=== PATIENT | male | born 1945 | race African-American/Black ===

== ENCOUNTER 2024-10-31 22:47 | Inpatient (IN) | payer MEDICARE, MEDICAID ==
[~2024-10-31] VITALS: Ht 175.3 cm; Wt 69.0 kg
[2024-10-31 23:56] LABS: BASOPHILS % 0.8 % (0.0-2.0); EOSINOPHILS % 0.4 % (0.0-5.0); HEMATOCRIT. 28.7 % (42.0-52.0); HEMOGLOBIN. 9.2 g/dL (14.0-18.0); LYMPHOCYTES % 17.8 % (20.0-50.0); MEAN CORPUSCULAR HEMOGLOBIN 30.6 pg (28.0-32.0); MEAN CORPUSCULAR HGB CONC 32.2 g/dL (31.0-37.0); MEAN CORPUSCULAR VOLUME 95.1 fL (80.0-94.0); MEAN PLATELET VOLUME 9.5 fl (7.4-10.4); MONOCYTES % 11.1 % (2.0-8.0); NEUTROPHILS % 69.9 % (40.0-76.0); PLATELET 111 x1000/uL (130-400); RED BLOOD CELL COUNT 3.02 mill/uL (4.7-6.1); RED CELL DISTRIBUTION WIDTH 15.5 % (11.6-14.6); WHITE BLOOD COUNT 7.5 x1000/uL (4.5-11.0)
[2024-11-01] VITALS (8 sets, daily range): BP systolic 113–138; BP diastolic 53–63; PULSE 50–85; RESP 18–22; TEMP 36.7–37.7; O2SAT 92–100
[2024-11-01 00:05] LABS: INR 1.2; PARTIAL THROMBOPLASTIN TIME 32.5 sec (23.4-31.0); PROTHROMBIN TIME 12.7 sec (9.6-11.0)
[2024-11-01 00:07] LABS: CHLORIDE 104 mEq/L (98-107); POTASSIUM 4.6 mEq/L (3.5-5.1); SODIUM 136 mEq/L (136-145)
[2024-11-01 00:08] LABS: CALCIUM 8.1 mg/dL (8.7-10.4); CARBON DIOXIDE 25 mEq/L (21-32)
[2024-11-01 00:13] LABS: CREATININE 1.9 mg/dL (0.6-1.3); GLUCOSE 106 mg/dL (70-105); UREA NITROGEN BLOOD 42 mg/dL (9-23)
[2024-11-01 00:32] LABS: ETHANOL BLOOD < 10 mg/dL (<10); TROPONIN I HIGH SENSITIVITY 112 ng/L (3.0-53)
[2024-11-01] MEDS: ASPIRIN 325MG EC TABLET PO NR (01:11)
[2024-11-01] MEDS ORDERED: IPRATROPIUM/ALBUTEROL 0.5-3(2.5)MG/3ML NEB HHN SCH (02:15)
[2024-11-01] MEDS ORDERED: MAGNESIUM/ALUMINUM HYDROXIDE/SIMETHICONE 30ML UDC PO PRN (02:15)
[2024-11-01] MEDS ORDERED: ONDANSETRON HCL 4MG/2ML INJ IV PRN (02:15)
[2024-11-01] MEDS ORDERED: CLONIDINE 0.1MG TABLET PO PRN (02:15)
[2024-11-01 03:23] LABS: BG BASE EXCESS -0.1 mmol/L (-2.0-3.0); BG CARBOXYHEMOGLOBIN 1.3 % (0.5-1.5); BG DEOXYHEMOGLOBIN 1.2 % (0.0-5.0); BG FRACTION INSPIRED OXYGEN 21; BG HCO3 ACT 25.2 mmol/L (21.0-28.0); BG METHEMOGLOBIN 0.3 % (0.5-1.5); BG OXYGEN SATURATION 98.8 % (94.0-98.0); BG OXYHEMOGLOBIN 97.2 % (94.0-98.0); BG PCO2 44.5 mmHg (35.0-48.0); BG PH 7.371 (7.350-7.450); BG PO2 119.9 mmHg (83.0-108.0); BG TOTAL HEMOGLOBIN 8.3 g/dL (13.5-17.5); BG VENT MODE ROOM AIR
[2024-11-01] MEDS: HEPARIN 25,000 UNITS PREMIX 250 ML IV SCH (03:28)
[2024-11-01] MEDS: DEXT 5%/0.45% NACL 1000ML 1,000 ML IV SCH (03:37)
[2024-11-01 03:41] LABS: IRON 23 ug/dL (65-175)
[2024-11-01 03:44] LABS: TOTAL IRON BINDING CAPACITY 257 ug/dl (250-425)
[2024-11-01 03:47] LABS: FOLIC ACID (FOLATE) SERUM > 20.00 ng/mL (>5.38); VITAMIN B12 SERUM 684 pg/mL (211-911)
[2024-11-01] MEDS: HEPARIN 60 UNITS/KG BOLUS IV NR (03:51)
[2024-11-01] MEDS: IPRATROPIUM/ALBUTEROL 0.5-3(2.5)MG/3ML NEB HHN ONE (04:34)
[2024-11-01 05:49] LABS: BASOPHILS % 0.7 % (0.0-2.0); EOSINOPHILS % 0.1 % (0.0-5.0); HEMATOCRIT. 27.3 % (42.0-52.0); HEMOGLOBIN. 8.9 g/dL (14.0-18.0); LYMPHOCYTES % 31.9 % (20.0-50.0); MEAN CORPUSCULAR HEMOGLOBIN 30.9 pg (28.0-32.0); MEAN CORPUSCULAR HGB CONC 32.5 g/dL (31.0-37.0); MEAN PLATELET VOLUME 9.7 fl (7.4-10.4); MONOCYTES % 13.9 % (2.0-8.0); NEUTROPHILS % 53.4 % (40.0-76.0); PLATELET 107 x1000/uL (130-400); RED BLOOD CELL COUNT 2.88 mill/uL (4.7-6.1); RED CELL DISTRIBUTION WIDTH 15.5 % (11.6-14.6); WHITE BLOOD COUNT 6.4 x1000/uL (4.5-11.0)
[2024-11-01] MEDS: CEFTRIAXONE 1GM/50ML 50 ML IV SCH (05:52)
[2024-11-01 05:56] LABS: POTASSIUM 4.4 mEq/L (3.5-5.1)
[2024-11-01 05:57] LABS: CALCIUM 7.7 mg/dL (8.7-10.4)
[2024-11-01] MEDS: IPRATROPIUM BROMIDE (0.02%) 0.5MG/2.5ML NEB HHN SCH (06:00)
[2024-11-01] MEDS: BUDESONIDE 0.5MG/2ML NEB HHN SCH (06:00)
[2024-11-01 06:02] LABS: CREATININE 1.9 mg/dL (0.6-1.3)
[2024-11-01 06:03] LABS: CREATINE KINASE 659 IU/L (46-171)
[2024-11-01 06:07] LABS: T4 FREE 0.79 ng/dL (0.89-1.76); THYROID STIMULATING HORMONE 1.31 uIU/mL (0.55-4.78)
[2024-11-01 06:29] LABS: TROPONIN I HIGH SENSITIVITY 176 ng/L (3.0-53)
[2024-11-01] MEDS: AZITHROMYCIN 500MG/250ML 250 ML IV SCH (06:37)
[2024-11-01] MEDS: CARVEDILOL 6.25 MG TABLET PO SCH (09:00)
[2024-11-01] MEDS ORDERED: HEPARIN BOLUS PRN aPTT 30-44 IV (10:00)
[2024-11-01] MEDS ORDERED: HEPARIN BOLUS PRN aPTT <30 IV (10:00)
[2024-11-01] MEDS: METHYLPREDNISOLONE SOD SUCC 125MG/2ML (ACT-O-VIAL) IV SCH (12:00)
[2024-11-01] MEDS ORDERED: HYDR25TA78 MT (13:12)
[2024-11-01] MEDS ORDERED: DIVA125T2 MT (13:12)
[2024-11-01] MEDS ORDERED: FOLI0.4T6 MT (13:12)
[2024-11-01] MEDS ORDERED: GUAI5SYR (13:12)
[2024-11-01] MEDS ORDERED: ATOR20TA65 MT (13:12)
[2024-11-01] MEDS ORDERED: TOPUD MT (13:12)
[2024-11-01] MEDS ORDERED: MULT-1146 MT (13:12)
[2024-11-01] MEDS ORDERED: MOM MT (13:12)
[2024-11-01] MEDS ORDERED: CARV6.2548 MT (13:12)
[2024-11-01] MEDS ORDERED: NA P230E RC (13:12)
[2024-11-01] MEDS ORDERED: VITA250012 MT (13:12)
[2024-11-01] MEDS ORDERED: LIDO5CRE26 TP (13:12)
[2024-11-01] MEDS ORDERED: ASPI-1497 MT (13:12)
[2024-11-01] MEDS ORDERED: AMLO5TAB88 MT (13:12)
[2024-11-01] MEDS ORDERED: FERR325T6 MT (13:12)
[2024-11-01] MEDS ORDERED: FLUT15.844 BOTHNSTRLS (13:12)
[2024-11-01] MEDS ORDERED: BISA10SU62 RC (13:12)
[2024-11-01] MEDS ORDERED: DOCU-422 MT (13:12)
[2024-11-01] MEDS ORDERED: OXYB5SYR MT (13:12)
[2024-11-01] MEDS ORDERED: DONE-51 MT (13:12)
[2024-11-01] MEDS ORDERED: SILO4CAP MT (13:12)
[2024-11-01 19:15] LABS: CREATINE KINASE 861 IU/L (46-171)
[2024-11-01 19:50] LABS: TROPONIN I HIGH SENSITIVITY 157 ng/L (3.0-53)
[2024-11-01 21:46] LABS: TROPONIN I HIGH SENSITIVITY 144 ng/L (3.0-53)
[2024-11-01] MEDS: ATORVASTATIN CALCIUM 20MG TABLET PO SCH (22:01)
[2024-11-01] MEDS: FAMOTIDINE 20MG TABLET PO SCH (22:02)
[2024-11-01] MEDS: ACETAMINOPHEN 325MG TABLET PO PRN (23:51)
[2024-11-02] VITALS (10 sets, daily range): BP systolic 105–155; BP diastolic 54–67; PULSE 50–67; RESP 17–20; TEMP 36.1–38.3; O2SAT 95–100
[2024-11-02 02:21] LABS: TROPONIN I HIGH SENSITIVITY 123 ng/L (3.0-53)
[2024-11-02] MEDS: ASPIRIN 81MG TABLET PO SCH (09:52)
[2024-11-02 10:47] LABS: POTASSIUM 4.6 mEq/L (3.5-5.1)
[2024-11-02 10:48] LABS: CALCIUM 7.8 mg/dL (8.7-10.4)
[2024-11-02 10:53] LABS: CREATININE 1.5 mg/dL (0.6-1.3)
[2024-11-02 11:16] LABS: INR 1.1; PARTIAL THROMBOPLASTIN TIME 33.1 sec (23.4-31.0); PROTHROMBIN TIME 12.2 sec (9.6-11.0)
[2024-11-02] MEDS: GUAIFENESIN 200MG/10ML SUGAR FREE UDC PO PRN (17:58)
[2024-11-03] VITALS (10 sets, daily range): BP systolic 106–176; BP diastolic 55–76; PULSE 51–100; RESP 18–26; TEMP 36–36.7; O2SAT 91–100
[2024-11-03] MEDS: AZITHROMYCIN 500MG/250ML 250 ML IV SCH (05:26)
[2024-11-03 08:38] LABS: CHLORIDE 105 mEq/L (98-107); POTASSIUM 4.8 mEq/L (3.5-5.1); SODIUM 134 mEq/L (136-145)
[2024-11-03 08:39] LABS: CALCIUM 7.8 mg/dL (8.7-10.4); CARBON DIOXIDE 22 mEq/L (21-32)
[2024-11-03 08:40] LABS: HEMATOCRIT. 30.5 % (42.0-52.0); HEMOGLOBIN. 9.6 g/dL (14.0-18.0); MEAN CORPUSCULAR HEMOGLOBIN 30.3 pg (28.0-32.0); MEAN CORPUSCULAR HGB CONC 31.6 g/dL (31.0-37.0); MEAN CORPUSCULAR VOLUME 95.9 fL (80.0-94.0); MEAN PLATELET VOLUME 10.6 fl (7.4-10.4); MONOCYTES % 6.1 % (2.0-8.0); NEUTROPHILS % 84.9 % (40.0-76.0); PLATELET 88 x1000/uL (130-400); RED BLOOD CELL COUNT 3.18 mill/uL (4.7-6.1); RED CELL DISTRIBUTION WIDTH 16.1 % (11.6-14.6); WHITE BLOOD COUNT 7.9 x1000/uL (4.5-11.0)
[2024-11-03 08:44] LABS: CREATININE 1.3 mg/dL (0.6-1.3); GLUCOSE 154 mg/dL (70-105); UREA NITROGEN BLOOD 42 mg/dL (9-23)
[2024-11-03] MEDS: CEFTRIAXONE 1GM/50ML 50 ML IV SCH (08:45)
[2024-11-03] MEDS: HYDRALAZINE 20MG/ML VIAL IV NR (21:40)
[2024-11-03 22:28] LABS: T4 FREE 0.84 ng/dL (0.89-1.76); THYROID STIMULATING HORMONE 1.16 uIU/mL (0.55-4.78)
[2024-11-04] VITALS (9 sets, daily range): BP systolic 120–172; BP diastolic 53–73; PULSE 53–98; RESP 18–22; TEMP 36.1–36.5; O2SAT 95–98
[2024-11-04] MEDS: HYDRALAZINE 20MG/ML VIAL IV PRN (04:23)
[2024-11-04] MEDS: AZITHROMYCIN 500MG/250ML 250 ML IV SCH (05:57)
[2024-11-04] MEDS: AMLODIPINE 10MG TABLET PO NR (20:25)
[2024-11-05] VITALS: BP 129/60; PULSE 52; RESP 21; TEMP 36.3; O2SAT 97
[2024-11-05] MEDS ORDERED: AZITHROMYCIN 500MG/250ML 250 ML IV SCH (06:00)
== END 2024-11-05 00:50 | DRG 865 ==
LOC: ER 22:47 → 7WST 11-01 00:37 → EDBEDREQ 11-01 00:40 → EDBEDREQTM 11-01 00:40
PROVIDERS: ADMIT Internal Medicine; ATTEND Internal Medicine
DX: B34.9 Viral infection, unspecified (principal); I21.A1 Myocardial infarction type 2; J96.91 Respiratory failure, unspecified with hypoxia; N17.9 Acute kidney failure, unspecified; E78.5 Hyperlipidemia, unspecified; R62.7 Adult failure to thrive; D69.6 Thrombocytopenia, unspecified; I12.9 Hypertensive chronic kidney disease with stage 1 through stage 4 chronic kidney disease, or unspecified chronic kidney disease; Z20.822 Contact with and (suspected) exposure to COVID-19; N18.9 Chronic kidney disease, unspecified; D53.9 Nutritional anemia, unspecified; F03.90 Unspecified dementia, unspecified severity, without behavioral disturbance, psychotic disturbance, mood disturbance, and anxiety; E86.0 Dehydration; Z86.718 Personal history of other venous thrombosis and embolism; Z79.82 Long term (current) use of aspirin; Z79.899 Other long term (current) drug therapy; Z68.22 Body mass index [BMI] 22.0-22.9, adult
CPT/HCPCS: 36415; 36600; 71045; 78580; 80048; 80061; 80320; 82375; 82550; 82607; 82746; 82805; 83036; 83540; 83550; 83605; 83880; 84145; 84439; 84443; 84484; 85025; 85044; 85379; 87426; 87804; 93005; 93306; 93970; 94070; 94640; 94664; 94760; 97162; 99285; A4606; J0360; J0456; J0696; J1644; J2919; J7626; G0480